=== PATIENT | female | born 1985 | race Caucasian/White ===

== ENCOUNTER → 2018-08-28 | Outpatient (CLI) | payer MEDICAID | END | disposition home or self-care (01) | LOC: RAD 08:38 | DX: O26.899 Other specified pregnancy related conditions, unspecified trimester (principal); Z3A.00 Weeks of gestation of pregnancy not specified; R76.11 Nonspecific reaction to tuberculin skin test without active tuberculosis | CPT/HCPCS: 71045 ==

== ENCOUNTER 2018-11-02 10:12 | Inpatient (IN) | payer MEDICAID ==
[~2018-11-02 10:12] MED LIST: HETASTARCH 6% NACL 500 ML BAG
[2018-11-02 11:01] LABS: RUPTURE FETAL MEMBRANES POSITIVE (NEGATIVE)
[2018-11-02 11:58] LABS: ADD MAN DIFF? NO
[2018-11-02] MEDS ORDERED: MISOPROSTOL 200 MCG TAB PR ×2 (12:00→22:30)
[2018-11-02] MEDS ORDERED: CARBOPROST 250 MCG INJ IM ×2 (12:00→22:30)
[2018-11-02] MEDS ORDERED: METHYLERGONOVINE 0.2 MG INJ IM ×2 (12:00→22:30)
[2018-11-02] MEDS ORDERED: OXYTOCIN 30 UNITS/LR 500 ML IV (12:00)
[2018-11-02 12:08] LABS: BASOPHILS % 0.4 % (0.0-2.0); EOSINOPHILS # 0.1 10^3/ul (0.0-0.5); EOSINOPHILS % 0.6 % (0.0-7.0); HEMATOCRIT 35.1 % (37.0-47.0); HEMOGLOBIN 11.4 g/dl (12.0-16.0); LYMPHOCYTES # 1.4 10^3/ul (0.8-2.9); LYMPHOCYTES % 17.2 % (15.0-51.0); MEAN CORPUSCULAR HGB CONC 32.5 g/dl (32.0-37.0); MEAN CORPUSCULAR VOLUME 89.3 fl (82.0-101.0); MEAN PLATELET VOLUME 10.3 fl (7.4-10.4); MONOCYTE # 0.7 10^3/ul (0.3-0.9); MONOCYTES % 8.1 % (0.0-11.0); NEUTROPHIL # 5.9 10^3/ul (1.6-7.5); NEUTROPHILS % 72.6 % (39.0-77.0); PLATELET COUNT 302 10^3/UL (140-415); RED BLOOD COUNT 3.93 10^6/ul (4.20-5.40); RED CELL DISTRIBUTION WIDTH 13.4 % (11.5-14.5)
[2018-11-02 12:08] LABS: WHITE BLOOD COUNT 8.1 10^3/ul (4.8-10.8)
[2018-11-02 12:19] LABS: INR 0.89; PROTIME 12.2 Sec (11.9-14.9)
[2018-11-02 12:20] LABS: PARTIAL THROMBOPLASTIN TIME 27.9 Sec (23.0-35.0)
[2018-11-02] MEDS: LACTATED RINGER'S 1,000 ML IV ×2 (13:03→15:02)
[2018-11-02] MEDS: ONDANSETRON 4 MG INJ IV (17:28)
[2018-11-02] MEDS: CITRIC ACID/NA CITRATE 30 ML CUP PO (17:28)
[2018-11-02] MEDS ORDERED: morphine SULFATE/PF (10 MG/10 ML) INJ (17:41)
[2018-11-02] MEDS ORDERED: OXYTOCIN 10 UNIT INJ (17:41)
[2018-11-02] MEDS ORDERED: PHENYLephrine (100 MCG/ML) 10ML SYG (17:41)
[2018-11-02] MEDS ORDERED: AZITHROMYCIN 500MG/NS (PMX) 250 ML (18:02)
[2018-11-02] MEDS ORDERED: DEXAMETHASONE 4 MG/ML 1 ML INJ (18:19)
[2018-11-02] MEDS ORDERED: KETOROLAC 30 MG INJ (18:20)
[2018-11-02] MEDS ORDERED: METOCLOPRAMIDE 10 MG INJ (18:20)
[2018-11-02] MEDS: OXYTOCIN 30 UNITS/LR 500 ML IV ×2 (19:05→23:35)
[2018-11-02] MEDS: CEFAZOLIN 2 GM/50 ML (PMX) 50 ML IVPB (19:05)
[2018-11-02] MEDS: ACETAMINOPHEN 500 MG TAB PO (19:12)
[2018-11-02 20:02] LABS: RAPID PLASMA REAGIN NONREACTIVE (NR)
[2018-11-02] MEDS: KETOROLAC 30 MG INJ IV (21:30)
[2018-11-02] MEDS ORDERED: NA PHOSPHATE/BIPHOS 133 ML ENEMA PR (22:30)
[2018-11-02] MEDS ORDERED: HYDROCODONE/APAP (5/325) TAB PO (22:30)
[2018-11-02] MEDS ORDERED: OXYCODONE/ACETAMINOPHEN (5/325) TAB PO (22:30)
[2018-11-02] MEDS: IBUPROFEN 800 MG TAB PO (22:30)
[2018-11-02] MEDS: SENNA/DOCUSATE NA (8.6MG/50MG) TAB PO (22:30)
[2018-11-02] MEDS ORDERED: LANOLIN HPA 1 PKT TOP (22:30)
[2018-11-02] MEDS ORDERED: HYDROmorphONE 0.5 MG/0.5 ML SYG IV ×2 (23:00)
[2018-11-02] MEDS ORDERED: morphine 2 MG INJ IV ×2 (23:00)
[2018-11-02] MEDS ORDERED: NALOXONE (0.4 MG/ML) INJ IV (23:00)
[2018-11-02] MEDS ORDERED: NALBUPHINE HCL (10 MG/1 ML) INJ IV (23:00)
[2018-11-02] MEDS ORDERED: DIPHENHYDRAMINE 50 MG INJ IV (23:00)
[2018-11-02] MEDS ORDERED: ACETAMINOPHEN 500 MG TAB PO (23:00)
[2018-11-02] MEDS ORDERED: ONDANSETRON 4 MG INJ IV (23:00)
[2018-11-03] MEDS: CLINDAMYCIN 300 MG CAP PO ×4 (00:20→18:03)
[2018-11-03] MEDS: CEFAZOLIN 2 GM/50 ML (PMX) 50 ML IVPB ×3 (00:21→17:59)
[2018-11-03] MEDS: LACTATED RINGER'S 1,000 ML IV ×3 (04:02→13:10)
[2018-11-03] MEDS: IBUPROFEN 800 MG TAB PO ×3 (06:00→22:28)
[2018-11-03 08:37] LABS: ADD MAN DIFF? NO
[2018-11-03 08:40] LABS: WHITE BLOOD COUNT 13.8 10^3/ul (4.8-10.8)
[2018-11-03 08:40] LABS: BASOPHILS % 0.1 % (0.0-2.0); EOSINOPHILS % 0.1 % (0.0-7.0); HEMATOCRIT 29.6 % (37.0-47.0); HEMOGLOBIN 9.6 g/dl (12.0-16.0); LYMPHOCYTES # 1.7 10^3/ul (0.8-2.9); LYMPHOCYTES % 12.5 % (15.0-51.0); MEAN CORPUSCULAR HEMOGLOBIN 28.4 pg (29.0-33.0); MEAN CORPUSCULAR HGB CONC 32.4 g/dl (32.0-37.0); MEAN CORPUSCULAR VOLUME 87.6 fl (82.0-101.0); MEAN PLATELET VOLUME 10.4 fl (7.4-10.4); MONOCYTE # 0.9 10^3/ul (0.3-0.9); MONOCYTES % 6.3 % (0.0-11.0); NEUTROPHIL # 10.9 10^3/ul (1.6-7.5); NEUTROPHILS % 79.5 % (39.0-77.0); PLATELET COUNT 275 10^3/UL (140-415); RED BLOOD COUNT 3.38 10^6/ul (4.20-5.40); RED CELL DISTRIBUTION WIDTH 13.3 % (11.5-14.5)
[2018-11-03] MEDS: SENNA/DOCUSATE NA (8.6MG/50MG) TAB PO ×2 (09:51→20:55)
[2018-11-03] MEDS: BISACODYL 10 MG SUPP PR ×2 (10:00→18:22)
[2018-11-03] MEDS: KETOROLAC 30 MG INJ IV (16:05)
[2018-11-04] MEDS: CLINDAMYCIN 300 MG CAP PO ×5 (00:38→23:13)
[2018-11-04] MEDS: IBUPROFEN 800 MG TAB PO ×3 (06:03→23:13)
[2018-11-04 06:41] LABS: ADD MAN DIFF? NO
[2018-11-04 06:48] LABS: WHITE BLOOD COUNT 10.1 10^3/ul (4.8-10.8)
[2018-11-04 06:48] LABS: BASOPHILS % 0.2 % (0.0-2.0); EOSINOPHILS # 0.1 10^3/ul (0.0-0.5); EOSINOPHILS % 1.1 % (0.0-7.0); HEMATOCRIT 28.1 % (37.0-47.0); HEMOGLOBIN 9.3 g/dl (12.0-16.0); LYMPHOCYTES # 1.5 10^3/ul (0.8-2.9); LYMPHOCYTES % 15.1 % (15.0-51.0); MEAN CORPUSCULAR HEMOGLOBIN 28.8 pg (29.0-33.0); MEAN CORPUSCULAR HGB CONC 33.1 g/dl (32.0-37.0); MEAN PLATELET VOLUME 9.7 fl (7.4-10.4); MONOCYTE # 0.8 10^3/ul (0.3-0.9); MONOCYTES % 7.4 % (0.0-11.0); NEUTROPHIL # 7.6 10^3/ul (1.6-7.5); NEUTROPHILS % 75.4 % (39.0-77.0); PLATELET COUNT 270 10^3/UL (140-415); RED BLOOD COUNT 3.23 10^6/ul (4.20-5.40); RED CELL DISTRIBUTION WIDTH 13.8 % (11.5-14.5)
[2018-11-04] MEDS: SENNA/DOCUSATE NA (8.6MG/50MG) TAB PO ×2 (09:08→23:13)
[2018-11-04] MEDS: HYDROCODONE/APAP (5/325) TAB PO (12:40)
[2018-11-04] MEDS ORDERED: ACETAMINOPHEN 325 MG TAB PO (16:30)
[2018-11-05] MEDS: CLINDAMYCIN 300 MG CAP PO ×2 (06:33→12:15)
[2018-11-05] MEDS: IBUPROFEN 800 MG TAB PO ×2 (06:33→13:39)
[2018-11-05] MEDS: MEASLES,MUMPS,RUBELLA VACCINE INJ SC* (09:00)
[2018-11-05] MEDS: SENNA/DOCUSATE NA (8.6MG/50MG) TAB PO (09:00)
[2018-11-05] MEDS: DIPHTH/TET/ACEL PERTUSS (ADULT) 0.5 ML VIAL IM* (12:16)
== END 2018-11-05 16:14 | disposition home or self-care (01) | DRG 788 ==
LOC: OBT 10:12 → L-D 10:12 → OBT 11:20 → L-D 11:20 → PP1 21:23
PROVIDERS: Obstetrics & Gynecology
PROC: 10D00Z1 Extraction of Products of Conception, Low, Open Approach (ICD-10-PCS; principal; 2018-11-02)
DX: O65.5 Obstructed labor due to abnormality of maternal pelvic organs (principal); O34.211 Maternal care for low transverse scar from previous cesarean delivery; Z3A.37 37 weeks gestation of pregnancy; Z37.0 Single live birth
CPT/HCPCS: 84112; 85025; 85610; 85730; 86592; 86850; 86900; 86901; 90715; 99464